=== PATIENT | male | born 1990 | race Two or more races ===

== ENCOUNTER 2018-12-16 11:37 | Emergency (ER) | payer SELFPAY ==
[~2018-12-16] VITALS: Ht 167.6 cm; Wt 60.3 kg
--- NOTE | 2018-12-16 13:07 | NUR ---
Patient is awake and alert to self, day, and place. Patient given written and verbal discharge instructions. Patient verbalizes understanding of instructions. Patient is ambulatory with steady gait. Refuses offer of longterm placement. Patient offered list of available shelters in surrounding area but refused. Per patient, "i will go to my mom's house at [place]." Offered to call mom, but patient said, "no" Food tray provided, Tap card will be provided.
--- NOTE | 2018-12-16 13:59 | NUR ---
Patient discharged to home in stable condition. Written and verbal after care instructions given. Patient verbalizes understanding of instruction.
[2018-12-16 14:00] VITALS: BP 112/78
--- NOTE | 2018-12-16 16:11 | NUR ---
ATTEMPTED TO MAKE CONTACT WITH PATIENT REGARDING PRESCRIPTION LEFT IN ER. PT DID NOT PROVIDE ANY PHONE NUMBER, EMERGENCY CONTACT, OR ANY FORM OF CONTACT INFORMATION.
== END 2018-12-16 14:03 | disposition home or self-care (01) ==
LOC: ER 11:39
DX: T40.1X1A Poisoning by heroin, accidental (unintentional), initial encounter (principal); F19.10 Other psychoactive substance abuse, uncomplicated; F10.10 Alcohol abuse, uncomplicated; Y90.9 Presence of alcohol in blood, level not specified; Z59.0 Homelessness; Y92.89 Other specified places as the place of occurrence of the external cause
CPT/HCPCS: 82962-TC